=== PATIENT | female | born 1990 ===

== ENCOUNTER 2017-09-08 10:31 | Emergency (ER) | payer OTHER ==
[~2017-09-08] VITALS: Ht 157.5 cm; Wt 60.3 kg
== END 2017-09-08 12:02 | disposition home or self-care (01) ==
LOC: ER 10:31
DX: H57.8 Other specified disorders of eye and adnexa (principal); T78.49XA Other allergy, initial encounter; X58.XXXA Exposure to other specified factors, initial encounter